=== PATIENT | female | born 1945 | race Caucasian/White ===

== ENCOUNTER 2019-07-12 05:51 | Inpatient (IN) ==
[2019-07-12] MEDS ORDERED: ERTAPENEM 1,000 MG in SODIUM CHLORIDE 0.9% 100 ML IV ONE (06:00)
[2019-07-12] MEDS ORDERED: ALVIMOPAN 12 MG CAPSULE PO ONE (06:00)
[2019-07-12] MEDS ORDERED: INDOCYANINE GREEN 25 MG VIAL IV ONE (06:28)
[2019-07-12] MEDS ORDERED: LIDOCAINE 1%/EPI INJ 20 ML VIAL ONE ×2 (06:28→15:18)
[2019-07-12] MEDS ORDERED: TISSUE ADHESIVE 1 EACH APPLICATOR TOP ONE (06:28)
[2019-07-12] MEDS ORDERED: BUPIVACAINE MPF 0.25% 30 ML VIAL ONE (06:28)
[2019-07-12] MEDS ORDERED: LACTATED RINGERS 1,000 ML IV SCH (06:30)
[2019-07-12] MEDS ORDERED: DEXAMETHASONE 4 MG/1 ML VIAL ONE ×2 (06:34→13:29)
[2019-07-12] MEDS ORDERED: EPINEPHrine 1 MG/ML VIAL ONE (06:34)
[2019-07-12] MEDS ORDERED: BUPIVACAINE 0.5% 50 ML VIAL ONE (06:34)
[2019-07-12] MEDS ORDERED: ERTAPENEM 1,000 MG VIAL ONE (06:40)
[2019-07-12] MEDS ORDERED: ALVIMOPAN 12 MG CAPSULE ONE (06:40)
[2019-07-12 13:20] LABS: Apearance,Urine CLEAR (Clear); Bacteria,Urine Occasional /HPF (Few); Bilirubin,Urine Negative (Negative); Blood, Urine Large mg/dL (Negative); Glucose,Urine (UA) Negative (Negative); Hyaline Casts,Urine 4 /LPF (0-3); Ketones,Urine Negative (Negative); Mucus,Urine Occasional /LPF (Occasional); Nitrite,Urine Negative (Negative); Protein,Urine Negative; RBC,Urine 5 /HPF (0-4); Urine Color Yellow (Yellow); Urine Specific Gravity 1.005 (1.001-1.035); Urine Urobilinogen < 2.0 EU/DL (0.2-1.0); WBC,Urine 1 /HPF (0-6)
[2019-07-12] MEDS ORDERED: fentaNYL 100 MCG/2 ML VIAL ONE ×2 (13:27→18:11)
[2019-07-12] MEDS ORDERED: SEVOFLURANE 1 UNIT/15 MINUTE INH ONE ×2 (13:27→18:11)
[2019-07-12] MEDS ORDERED: PROPOFOL 200 MG/20 ML VIAL IV ONE ×2 (13:27→18:11)
[2019-07-12] MEDS ORDERED: MORPHINE 4 MG/1 ML VIAL IV PRN ×2 (13:27→21:51)
[2019-07-12] MEDS ORDERED: ONDANSETRON 4 MG/2 ML VIAL IV PRN ×2 (13:27→13:50)
[2019-07-12] MEDS ORDERED: ROCURONIUM 100 MG/10 ML VIAL IV ONE ×2 (13:28→18:12)
[2019-07-12] MEDS ORDERED: MIDAZOLAM 2 MG/2 ML VIAL ONE (13:28)
[2019-07-12] MEDS ORDERED: PHENYLEPHRINE 1 MG/10 ML SYRINGE IV ONE ×2 (13:29→18:11)
[2019-07-12] MEDS ORDERED: ONDANSETRON 4 MG/2 ML VIAL ONE (13:29)
[2019-07-12] MEDS ORDERED: GLYCOPYRROLATE 0.4 MG/2 ML VIAL ONE (13:29)
[2019-07-12] MEDS ORDERED: LACTATED RINGERS 1,000 ML IV ONE (13:30)
[2019-07-12] MEDS ORDERED: NEOSTIGMINE 10 MG/10 ML VIAL ONE (13:30)
[2019-07-12] MEDS ORDERED: hydroCHLOROthiazide 25 MG TABLET PO PRN (13:30)
[2019-07-12] MEDS ORDERED: hydrALAZINE 20 MG/1 ML VIAL ONE (13:34)
[2019-07-12] MEDS ORDERED: hydrALAZINE 20 MG/1 ML VIAL IV ONE (13:43)
[2019-07-12] MEDS ORDERED: HYDROmorphone 2 MG/1 ML VIAL IV PRN (13:50)
[2019-07-12 14:33] LABS: Basophils % 0.2 % (0.0-0.8); Hematocrit 34.7 VOL% (35.7-47.0); Hemoglobin 11.5 GM/DL (12.0-16.0); Immature Granulocytes % 0.5 %; Immature Granulocytes Absolute 0.09 #; Lymphocytes # 1.6 10*3/uL (1.4-4.0); Lymphocytes % 8.1 % (21.3-54.2); Mean Corpuscular HGB Conc 33.1 GM/DL (32-36); Mean Corpuscular Volume 103.9 FL (87-102); Mean Platelet Volume 10.3 FL (9.6-12.0); Monocytes % 4.8 % (1.7-12.7); Neutrophils % 86.4 % (38.7-73.9); Platelet Count 214 T/CUMM (130-400); Red Blood Count 3.34 MC/CUMM (3.8-5.5); White Blood Count 19.3 T/CUMM (4-12)
[2019-07-12 14:40] LABS: PT Patient Result 11.3 SECS (9.6-12.2); Partial Thromboplastin Time 23.1 SECS (20.8-36.0)
[2019-07-12] MEDS ORDERED: ALBUMIN 5% 12.5 GM/250 ML VIAL IV ONE (14:40)
[2019-07-12] MEDS ORDERED: ALBUMIN 5% 12.5 GM in PREMIX 1 EACH IV ONE (14:41)
[2019-07-12 14:53] LABS: Calcium 7.6 MG/DL (8.5-10.1); Osmolality,Calculated 288.1 MOS/KG (273-304)
[2019-07-12] MEDS ORDERED: SODIUM CHLORIDE 0.9% 1,000 ML IV PRN ×3 (15:11→16:24)
[2019-07-12] MEDS ORDERED: LIDOCAINE 1% 20 ML VIAL ONE (15:18)
[2019-07-12] MEDS ORDERED: MAGNESIUM SULFATE 5 GM/10 ML VIAL IV ONE (15:18)
[2019-07-12] MEDS ORDERED: MICROFIBRILLAR COLLAGEN POWDER 1 GM CAN TOP ONE (15:51)
[2019-07-12 17:00] LABS: Basophils % 0.2 % (0.0-0.8); Hematocrit 28.2 VOL% (35.7-47.0); Hemoglobin 9.3 GM/DL (12.0-16.0); Immature Granulocytes % 0.4 %; Immature Granulocytes Absolute 0.05 #; Lymphocytes # 0.9 10*3/uL (1.4-4.0); Lymphocytes % 7.2 % (21.3-54.2); Mean Corpuscular Volume 100.7 FL (87-102); Mean Platelet Volume 10.3 FL (9.6-12.0); Monocytes % 11.2 % (1.7-12.7); Platelet Count 97 T/CUMM (130-400); White Blood Count 13.1 T/CUMM (4-12)
[2019-07-12 17:14] LABS: Calcium 8.6 MG/DL (8.5-10.1); Osmolality,Calculated 290.8 MOS/KG (273-304)
[2019-07-12 17:28] LABS: INR 1.2; PT Patient Result 12.7 SECS (9.6-12.2); Partial Thromboplastin Time 23.8 SECS (20.8-36.0)
[2019-07-12] MEDS: PROPOFOL 1,000 MG/100 ML BOTTLE IV SCH (17:49)
[2019-07-12] MEDS: DEXTROSE 5% LACTATED RINGERS 1,000 ML IV SCH (17:55)
[2019-07-12 18:01] LABS: Band Neutrophils 1 % (0-10); Lymphocytes 5 % (20-55); Segmented Neutrophils 88 % (50-85); Total Cells Counted 100
[2019-07-12 18:02] LABS: Macrocytosis Slight; Platelet Estimate Decreased
[2019-07-12 18:08] LABS: ABG Base Excess -7.9 MMOL/L (-2.5-2.5); ABG HCO3 19.2 MMOL/L (20-26); ABG PCO2 45.3 MM HG (35-48); ABG PH 7.245 (7.35-7.45); ABG PO2 225.1 MM HG (80-95); ABG TCO2 20.6 MMOL/L (23-27); Pt O2 Delivery Device Ventilator
[2019-07-12 18:10] LABS: Band Neutrophils 2 % (0-10); Lymphocytes 8 % (20-55); Macrocytosis 1+; Platelet Estimate Adequate; Segmented Neutrophils 83 % (50-85); Total Cells Counted 100
[2019-07-12] MEDS ORDERED: ETOMIDATE 40 MG/20 ML VIAL IV ONE (18:11)
[2019-07-12] MEDS ORDERED: LIDOCAINE 2% 5 ML VIAL ONE (18:11)
[2019-07-12] MEDS ORDERED: CALCIUM CHLORIDE 1,000 MG/10 ML VIAL IV ONE (18:11)
[2019-07-12] MEDS ORDERED: SODIUM CHLORIDE 0.9% 2,000 ML IV ONE (18:12)
[2019-07-12] MEDS: ALBUTEROL/IPRATROPIUM 3 ML NEB RESP TX SCH (18:45)
[2019-07-12 21:27] LABS: Hematocrit 34.6 VOL% (35.7-47.0); Hemoglobin 11.7 GM/DL (12.0-16.0)
[2019-07-12] MEDS: cefOXitin 2,000 MG in SYRINGE 1 EACH IV SCH (21:30)
[2019-07-12] MEDS: ALVIMOPAN 12 MG CAPSULE PO SCH (21:55)
[2019-07-12] MEDS: LISINOPRIL 10 MG TABLET PO SCH (21:55)
[2019-07-13] MEDS: PROPOFOL 1,000 MG/100 ML BOTTLE IV SCH (00:55)
[2019-07-13] MEDS: DEXTROSE 5% LACTATED RINGERS 1,000 ML IV SCH ×3 (01:55→16:50)
[2019-07-13] MEDS: cefOXitin 2,000 MG in SYRINGE 1 EACH IV SCH ×2 (02:40→10:55)
[2019-07-13 03:04] LABS: ABG Base Excess -1.6 MMOL/L (-2.5-2.5); ABG HCO3 23.1 MMOL/L (20-26); ABG Oxygen Saturation 99.5 % (95-100); ABG PCO2 42.6 MM HG (35-48); ABG PH 7.357 (7.35-7.45); ABG TCO2 21.3 MMOL/L (23-27); Allen Test Positive; Pt O2 Delivery Device Ventilator
[2019-07-13 05:34] LABS: Basophils % 0.2 % (0.0-0.8); Hematocrit 32.4 VOL% (35.7-47.0); Hemoglobin 11.1 GM/DL (12.0-16.0); Immature Granulocytes % 0.4 %; Immature Granulocytes Absolute 0.05 #; Lymphocytes # 1.5 10*3/uL (1.4-4.0); Lymphocytes % 13.1 % (21.3-54.2); Mean Corpuscular HGB Conc 34.3 GM/DL (32-36); Mean Corpuscular Volume 95.9 FL (87-102); Mean Platelet Volume 10.4 FL (9.6-12.0); Monocytes % 12.9 % (1.7-12.7); Neutrophils % 73.4 % (38.7-73.9); Platelet Count 110 T/CUMM (130-400); Red Blood Count 3.38 MC/CUMM (3.8-5.5); White Blood Count 11.6 T/CUMM (4-12)
[2019-07-13 05:52] LABS: Macrocytosis 1+; Platelet Estimate Decreased
[2019-07-13 06:04] LABS: Calcium 7.8 MG/DL (8.5-10.1)
[2019-07-13] MEDS: ALBUTEROL/IPRATROPIUM 3 ML NEB RESP TX SCH ×4 (07:39→19:22)
[2019-07-13] MEDS: MORPHINE 4 MG/1 ML VIAL IV PRN ×2 (08:35→15:11)
[2019-07-13] MEDS: ALVIMOPAN 12 MG CAPSULE PO SCH ×2 (09:11→21:59)
[2019-07-13] MEDS: PANTOPRAZOLE 40 MG TABLET PO SCH (09:12)
[2019-07-13] MEDS: ASPIRIN EC 81 MG TABLET PO SCH (09:12)
[2019-07-13] MEDS: FLUoxetine 20 MG CAPSULE PO SCH (09:12)
[2019-07-13 12:29] LABS: Hematocrit 30.5 VOL% (35.7-47.0); Hemoglobin 10.3 GM/DL (12.0-16.0)
[2019-07-13] MEDS: METOPROLOL TARTRATE 5 MG/5 ML VIAL IV PRN (15:11)
[2019-07-13] MEDS: LISINOPRIL 10 MG TABLET PO SCH (21:59)
[2019-07-14] MEDS: DEXTROSE 5% LACTATED RINGERS 1,000 ML IV SCH ×3 (00:03→14:57)
[2019-07-14] MEDS: ALBUTEROL/IPRATROPIUM 3 ML NEB RESP TX SCH ×4 (00:16→19:22)
[2019-07-14] MEDS: MORPHINE 4 MG/1 ML VIAL IV PRN (06:14)
[2019-07-14 06:22] LABS: Basophils # 0.1 10*3/uL (0.0-0.2); Basophils % 0.5 % (0.0-0.8); Eosinophils # 0.1 10*3/uL (0.0-0.87); Immature Granulocytes % 0.6 %; Immature Granulocytes Absolute 0.06 #; Lymphocytes # 1.6 10*3/uL (1.4-4.0); Mean Corpuscular HGB Conc 32.8 GM/DL (32-36); Mean Corpuscular Volume 96.5 FL (87-102); Mean Platelet Volume 11.4 FL (9.6-12.0); Neutrophils % 71.9 % (38.7-73.9); Red Blood Count 2.59 MC/CUMM (3.8-5.5); Red Cell Distribution Width 16.6 % (9.3-17.3); White Blood Count 10.4 T/CUMM (4-12)
[2019-07-14 06:30] LABS: Hemoglobin 8.2 GM/DL (12.0-16.0); Platelet Count 76 T/CUMM (130-400)
[2019-07-14 06:37] LABS: Albumin 2.1 G/DL (3.4-5.0); Bilirubin,Total 0.4 MG/DL (0.2-1.0); Osmolality,Calculated 288.4 MOS/KG (273-304); Total Protein 4.1 G/DL (6.4-8.3)
[2019-07-14 07:01] LABS: Lymphocytes 7 % (20-55); Platelet Estimate Decreased; Segmented Neutrophils 85 % (50-85); Total Cells Counted 100
[2019-07-14 07:03] LABS: Anisocytosis Slight; Microcytosis Slight
[2019-07-14] MEDS: FLUoxetine 20 MG CAPSULE PO SCH (08:21)
[2019-07-14] MEDS: ASPIRIN EC 81 MG TABLET PO SCH (08:21)
[2019-07-14] MEDS: ALVIMOPAN 12 MG CAPSULE PO SCH ×2 (08:21→20:12)
[2019-07-14] MEDS: PANTOPRAZOLE 40 MG TABLET PO SCH (08:21)
[2019-07-14] MEDS ORDERED: MAGNESIUM SULF RIDER 4 GM in PREMIX 1 EACH IV PRN (09:21)
[2019-07-14] MEDS: MAGNESIUM SULF RIDER 2 GM in PREMIX 1 EACH IV PRN ×2 (09:58→11:57)
[2019-07-14] MEDS: POTASSIUM CHLORIDE RIDER 20 MEQ in PREMIX 1 EACH IV PRN ×5 (09:59→20:10)
[2019-07-14] MEDS: METOPROLOL TARTRATE 5 MG/5 ML VIAL IV PRN (12:12)
[2019-07-14 12:34] LABS: Basophils % 0.2 % (0.0-0.8); Eosinophils # 0.1 10*3/uL (0.0-0.87); Eosinophils % 0.9 % (0.00-10.9); Hematocrit 26.4 VOL% (35.7-47.0); Hemoglobin 8.9 GM/DL (12.0-16.0); Immature Granulocytes % 0.5 %; Immature Granulocytes Absolute 0.05 #; Lymphocytes # 1.8 10*3/uL (1.4-4.0); Lymphocytes % 16.6 % (21.3-54.2); Mean Corpuscular HGB Conc 33.7 GM/DL (32-36); Mean Corpuscular Volume 95.3 FL (87-102); Mean Platelet Volume 11.9 FL (9.6-12.0); Monocytes % 8.2 % (1.7-12.7); Neutrophils % 73.6 % (38.7-73.9); Platelet Count 85 T/CUMM (130-400); Red Blood Count 2.77 MC/CUMM (3.8-5.5); Red Cell Distribution Width 16.3 % (9.3-17.3); White Blood Count 10.9 T/CUMM (4-12)
[2019-07-14 13:05] LABS: Anisocytosis 1+; Macrocytosis Slight; Microcytosis Slight; Ovalocytes Few; Platelet Estimate Decreased; Polychromasia Slight
[2019-07-14] MEDS: POTASSIUM CHLORIDE RIDER 10 MEQ in PREMIX 1 EACH IV PRN ×2 (19:11→19:12)
[2019-07-14] MEDS: LISINOPRIL 10 MG TABLET PO SCH (20:12)
[2019-07-15] MEDS: ALBUTEROL/IPRATROPIUM 3 ML NEB RESP TX SCH ×4 (00:24→19:53)
[2019-07-15 06:07] LABS: Basophils % 0.2 % (0.0-0.8); Eosinophils # 0.1 10*3/uL (0.0-0.87); Eosinophils % 1.5 % (0.00-10.9); Hematocrit 23.6 VOL% (35.7-47.0); Hemoglobin 7.8 GM/DL (12.0-16.0); Immature Granulocytes % 0.5 %; Immature Granulocytes Absolute 0.04 #; Lymphocytes # 1.5 10*3/uL (1.4-4.0); Lymphocytes % 17.4 % (21.3-54.2); Mean Corpuscular HGB Conc 33.1 GM/DL (32-36); Mean Corpuscular Volume 97.5 FL (87-102); Mean Platelet Volume 11.9 FL (9.6-12.0); Monocytes % 7.5 % (1.7-12.7); Neutrophils % 72.9 % (38.7-73.9); Platelet Count 83 T/CUMM (130-400); Red Blood Count 2.42 MC/CUMM (3.8-5.5); Red Cell Distribution Width 16.1 % (9.3-17.3); White Blood Count 8.5 T/CUMM (4-12)
[2019-07-15 06:26] LABS: Calcium 7.8 MG/DL (8.5-10.1); Osmolality,Calculated 286.6 MOS/KG (273-304)
[2019-07-15] MEDS: PANTOPRAZOLE 40 MG TABLET PO SCH (08:58)
[2019-07-15] MEDS: FLUoxetine 20 MG CAPSULE PO SCH (08:58)
[2019-07-15] MEDS: ASPIRIN EC 81 MG TABLET PO SCH (08:58)
[2019-07-15] MEDS: ALVIMOPAN 12 MG CAPSULE PO SCH ×2 (08:58→21:43)
[2019-07-15] MEDS: POTASSIUM CHLORIDE RIDER 20 MEQ in PREMIX 1 EACH IV PRN (10:14)
[2019-07-15 11:41] LABS: Basophils % 0.2 % (0.0-0.8); Eosinophils # 0.1 10*3/uL (0.0-0.87); Eosinophils % 1.3 % (0.00-10.9); Hematocrit 23.7 VOL% (35.7-47.0); Immature Granulocytes % 0.4 %; Immature Granulocytes Absolute 0.04 #; Lymphocytes # 1.6 10*3/uL (1.4-4.0); Lymphocytes % 17.4 % (21.3-54.2); Mean Corpuscular HGB Conc 33.8 GM/DL (32-36); Mean Platelet Volume 10.7 FL (9.6-12.0); Monocytes % 6.7 % (1.7-12.7); Platelet Count 88 T/CUMM (130-400); Red Blood Count 2.47 MC/CUMM (3.8-5.5); Red Cell Distribution Width 15.8 % (9.3-17.3); White Blood Count 9.3 T/CUMM (4-12)
[2019-07-15] MEDS: POTASSIUM CHLORIDE RIDER 10 MEQ in PREMIX 1 EACH IV PRN (12:23)
[2019-07-15] MEDS: MORPHINE 4 MG/1 ML VIAL IV PRN (14:00)
[2019-07-15] MEDS: LISINOPRIL 10 MG TABLET PO SCH (21:34)
[2019-07-16] MEDS: ALBUTEROL/IPRATROPIUM 3 ML NEB RESP TX SCH ×2 (01:00→08:05)
[2019-07-16 05:14] LABS: Basophils % 0.3 % (0.0-0.8); Eosinophils # 0.1 10*3/uL (0.0-0.87); Hematocrit 23.1 VOL% (35.7-47.0); Hemoglobin 7.8 GM/DL (12.0-16.0); Immature Granulocytes % 0.3 %; Immature Granulocytes Absolute 0.02 #; Lymphocytes # 1.2 10*3/uL (1.4-4.0); Lymphocytes % 17.4 % (21.3-54.2); Mean Corpuscular HGB Conc 33.8 GM/DL (32-36); Mean Corpuscular Volume 95.5 FL (87-102); Mean Platelet Volume 11.8 FL (9.6-12.0); Monocytes % 8.9 % (1.7-12.7); Neutrophils % 71.1 % (38.7-73.9); Platelet Count 97 T/CUMM (130-400); Red Blood Count 2.42 MC/CUMM (3.8-5.5); Red Cell Distribution Width 15.8 % (9.3-17.3)
[2019-07-16 05:36] LABS: Calcium 7.9 MG/DL (8.5-10.1); Osmolality,Calculated 280.1 MOS/KG (273-304)
[2019-07-16 05:45] LABS: Eosinophils 1 % (0-10); Hypochromasia 1+; Lymphocytes 18 % (20-55); Ovalocytes Slight; Platelet Estimate Decreased; Segmented Neutrophils 71 % (50-85); Total Cells Counted 100
[2019-07-16] MEDS: POTASSIUM CHLORIDE RIDER 10 MEQ in PREMIX 1 EACH IV PRN ×3 (05:46→08:44)
[2019-07-16] MEDS: ASPIRIN EC 81 MG TABLET PO SCH (08:45)
[2019-07-16] MEDS: FLUoxetine 20 MG CAPSULE PO SCH (08:45)
[2019-07-16] MEDS: PANTOPRAZOLE 40 MG TABLET PO SCH (08:45)
[2019-07-16 12:28] VITALS: BP 150/56
== END 2019-07-16 13:55 | disposition home or self-care (01) | DRG 330 ==
LOC: N.SDSINP 05:51 → N.PREADM 05:51 → N.SDSINP 13:27 → N.ICU 18:47 → N.3E 07-14 14:17
PROVIDERS: ADMIT Surgery; ATTEND Surgery